=== PATIENT | male | born 1985 | race Caucasian/White ===

== ENCOUNTER 2020-06-27 20:41 | Emergency (ER) | payer SELFPAY ==
[2020-06-27] MEDS ORDERED: Ketorolac 30 MG/ML SDV IVPUSH ONE (20:57)
[2020-06-27] MEDS ORDERED: Ondansetron 4 MG/2 ML SDV IVPUSH ONE (20:57)
[2020-06-27] MEDS ORDERED: Sodium Chloride 0.9% 1,000 ML IV ONE (20:57)
--- NOTE | 2020-06-27 20:57 | EDM.PDOC ---
<Brent Arzola - Last Filed: 06/27/20 22:53> ED HPI GENERAL MEDICAL PROBLEM - General Chief Complaint: Abdominal Pain Stated Complaint: ABDOMINAL PAIN Time Seen by Provider: 06/27/20 20:44 - Related Data Allergies Allergy/AdvReac Type Severity Reaction Status Date / Time No Known Allergies Allergy Verified 06/27/20 20:59 Home Meds: Home Meds Dextroamphetamine/Amphetamine [Adderall] 30 mg PO BID 06/27/20 [History] ED ROS GENERAL - Review of Systems Review Of Systems: Comprehensive ROS is negative, except as noted in HPI. ED EXAM, GI/ABD - Physical Exam Exam: See Below Text/Narrative:: My physical exam is in the HPI in the comments section Course - Vital Signs Text/Narrative:: The patient was turned over to me at the end of my colleagues shift. The patient has 3 weeks abdominal pain worse the last few hours. The patient says it is in the right lower quadrant. It is constant and nothing makes it better or worse. His appetite is good. He has been eating and drinking quite as much as usual. His bowel movements and urine output are normal. He had the pain before this 3-week period. He has not had any injury. Exam reveals tenderness to direct palpation near McBurney's point, no referred tenderness and no guard or rebound. Departure - Departure Time of Disposition: 22:54 Disposition: Home, Self-Care 01 Condition: Good Clinical Impression: Abdominal pain, Constipation, Dehydration - Discharge Information Instructions: Dehydration, Adult, [id number], Constipation, Adult, Abdominal Pain, Adult, [id number] Referrals: David Wisdom Jr, DANIELE [Primary Care Provider] - Forms: ED Department Discharge Additional Instructions: There are 2 kinds of laxatives. One is a stool softener and that with liquids would help if you do not have a lot of fiber in her diet. When you feel it is backed up and you have pain you can take a laxative that will induce the actual movement which is called the cathartic Laxative. The pharmacist can help you pick which one is the best and most affordable for these which are all [id number]. [facility] - Primary [facility] [address] [place] [address] [facility] [address] [place] [address] The following information is given to patients seen in the emergency department who are being discharged to home. This information is to outline your options for follow-up care. We provide all patients seen in our emergency department with a follow-up referral. The need for follow-up, as well as the timing and circumstances, are variable depending upon the specifics of your emergency department visit. If you don't have a primary care physician on staff, we will provide you with a referral. We always advise you to contact your personal physician following an emergency department visit to inform them of the circumstance of the visit and for follow-up with them and/or the need for any referrals to a consulting specialist. The emergency department will also refer you to a specialist when appropriate. This referral assures that you have the opportunity for follow-up care with a specialist. All of these measure are taken in an effort to provide you with o ptimal care, which includes your follow-up. Under all circumstances we always encourage you to contact your private physician who remains a resource for coordinating your care. When calling for follow-up care, please make the office aware that this follow-up is from your recent emergency room visit. If for any reason you are refused follow-up, please contact the [facility] Emergency Department at and asked to speak to the emergency department charge nurse. <Talon Shetty E - Last Filed: 06/29/20 10:12> ED HPI GENERAL MEDICAL PROBLEM - General Source of Information: Reports: Patient History Limitations: Reports: No Limitations - History of Present Illness INITIAL COMMENTS - FREE TEXT/NARRATIVE: HISTORY AND PHYSICAL: History of present illness: Patient is a 35-year-old male who presents to the emergency room with complaints of right upper and right lower quadrant abdominal pain x 2 weeks. States pain initially was dull but over the past 2 days has been increased. Has not assoc iated this with food, physical activity, stress etc... Patient denies any fever, chills, headache, change in vision, syncope or near syncope. Denies any chest pain, back pain, shortness of breath or cough. Denies any nausea, vomiting, diarrhea, constipation or dysuria. Has not noted any blood in urine or stool. Patient has been eating and drinking appropriately. Review of systems: As per history of present illness and below otherwise all systems reviewed and negative. Past medical history: As per history of present illness and as reviewed below otherwise noncontributory. Surgical history: As per history of present illness and as reviewed below otherwise noncontributory. Social history: See social history for further information Family history: As per history of present illness and as reviewed below otherwise noncontributory. Physical exam: General: Well developed and well nourished. Alert and orientated x 3. Nontoxic in appearance and in no acute distress. Vital signs are stable and have been reviewed by me. Nursing notes were reviewed. HEENT: Atraumatic, normocephalic, pupils equal and reactive bilaterally, negative for conjunctival pallor or scleral icterus, mucous membranes moist, TMs normal bilaterally, throat clear, neck supple, nontender, trachea midline. No drooling or trismus noted. No meningeal signs. No hot potato voice noted. Lungs: Clear to auscultation, breath sounds equal bilaterally, chest nontender. Normal work of breathing, no accessory muscles used. Heart: S1S2, regular rate and rhythm without overt murmur Abdomen: Soft, nondistended, mild right upper quadrant tenderness with more intense tenderness to the right lower quadrant. Negative for masses or hepatosplenomegaly. Negative for costovertebral tenderness. Skin: Intact, warm, dry. No lesions or rashes noted. Hematologic: No petechiae or purpra. Mucosa appropriate color and normal nail bed color and refill. Extremities: Atraumatic, moves all extremities per self without difficulty or deficits, negative for cords or calf pain. Neurovascular unremarkable. Neuro: Awake, alert, oriented. Cranial nerves II through XII unremarkable. Cerebellum unremarkable. Motor and sensory unremarkable throughout. Exam nonfocal. Psychiatric: Mood and affect are appropriate. Normal thought process. Answering questions appropriately. Notes: Lab work and imaging are pending. Dr Arzola has agreed to follow this patient and disposition appropriately. Diagnostics: CBC, CMP, Lipase, UA, CT abd/pelvis, COVID Therapeutics: IV fluids, Toradol, Impression: Constipation Dehydration Abdominal Pain Definitive disposition and diagnosis as appropriate pending reevaluation and review of above. Right Upper Abdomen Pain Score (Numeric/FACES): 2 ED ROS GENERAL - Review of Systems Review Of Systems: Comprehensive ROS is negative, except as noted in HPI. Course - Vital Signs Last Recorded V/S: Last Vital Signs Temp 98.1 F 06/27/20 22:40 Pulse 80 06/27/20 22:40 Resp 18 06/27/20 22:40 BP 139/92 H 06/27/20 22:40 Pulse Ox 97 06/27/20 22:40 - Orders/Labs/Meds Labs: Laboratory Tests 06/27/20 06/27/20 06/27/20 Range/Units 21:00 21:10 21:10 WBC 8.09 (4.0-11.0) K/uL RBC 5.78 (4.50-5.90) M/uL Hgb 17.2 H (13.0-17.0) g/dL Hct 51.1 H (38.0-50.0) % MCV 88.4 (80.0-98.0) fL MCH 29.8 (27.0-32.0) pg MCHC 33.7 (31.0-37.0) g/dL RDW Std Deviation 39.9 (28.0-62.0) fl RDW Coeff of Hugo 13 (11.0-15.0) % Plt Count 342 (150-400) K/uL MPV 9.40 (7.40-12.00) fL Neut % (Auto) 52.1 (48.0-80.0) % Lymph % (Auto) 33.3 (16.0-40.0) % [place] % (Auto) 6.8 (0.0-15.0) % Eos % (Auto) 7.2 H (0.0-7.0) % Baso % (Auto) 0.6 (0.0-1.5) % Neut # (Auto) 4.2 (1.4-5.7) K/uL Lymph # (Auto) 2.7 H (0.6-2.4) K/uL [place] # (Auto) 0.6 (0.0-0.8) K/uL Eos # (Auto) 0.6 (0.0-0.7) K/uL Baso # (Auto) 0.1 (0.0-0.1) K/uL Nucleated RBC % 0.0 /100WBC Nucleated RBCs # 0 K/uL Sodium 140 (136-148) mmol/L Potassium 4.0 (3.5-5.1) mmol/L Chloride 103 (98-107) mmol/L Carbon Dioxide 26.3 (21.0-32.0) mmol/L BUN 15 (7.0-18.0) mg/dL Creatinine 1.1 (0.8-1.3) mg/dL Est Cr Clr Drug Dosing 100.92 mL/min Estimated GFR (MDRD) > 60.0 ml/min Glucose 113 H (74-106) mg/dL Calcium 10.4 H (8.5-10.1) mg/dL Total Bilirubin 0.5 (0.2-1.0) mg/dL AST 20 (15-37) IU/L ALT 35 (14-63) IU/L Alkaline Phosphatase 107 (46-116) U/L Total Protein 7.7 (6.4-8.2) g/dL Albumin 3.9 (3.4-5.0) g/dL Globulin 3.8 (2.6-4.0) g/dL Albumin/Globulin Ratio 1.0 (0.9-1.6) Lipase 110 (73-393) U/L Urine Color YELLOW Urine Appearance CLEAR Urine pH 6.0 (5.0-8.0) Ur Specific [place] >= 1.030 (1.001-1.035) Urine Protein NEGATIVE (NEGATIVE) mg/dL Urine Glucose (UA) NEGATIVE (NEGATIVE) mg/dL Urine Ketones NEGATIVE (NEGATIVE) mg/dL Urine Occult Blood NEGATIVE (NEGATIVE) Urine Nitrite POSITIVE H (NEGATIVE) Urine Bilirubin NEGATIVE (NEGATIVE) Urine Urobilinogen 0.2 (<2.0) EU/dL Ur Leukocyte Esterase NEGATIVE (NEGATIVE) Urine RBC 0-1 (0-2/HPF) Urine WBC 0-2 (0-5/HPF) Ur Epithelial Cells OCCASIONAL (NONE-FEW) Urine Bacteria FEW (NEGATIVE) Urine Mucus LIGHT (NONE-MOD) SARS CoV-2 RNA Rapid CHARLI (NEGATIVE) 06/27/20 Range/Units 21:15 WBC (4.0-11.0) K/uL RBC (4.50-5.90) M/uL Hgb (13.0-17.0) g/dL Hct (38.0-50.0) % MCV (80.0-98.0) fL MCH (27.0-32.0) pg MCHC (31.0-37.0) g/dL RDW Std Deviation (28.0-62.0) fl RDW Coeff of Hugo (11.0-15.0) % Plt Count (150-400) K/uL MPV (7.40-12.00) fL Neut % (Auto) (48.0-80.0) % Lymph % (Auto) (16.0-40.0) % [place] % (Auto) (0.0-15.0) % Eos % (Auto) (0.0-7.0) % Baso % (Auto) (0.0-1.5) % Neut # (Auto) (1.4-5.7) K/uL Lymph # (Auto) (0.6-2.4) K/uL [place] # (Auto) (0.0-0.8) K/uL Eos # (Auto) (0.0-0.7) K/uL Baso # (Auto) (0.0-0.1) K/uL Nucleated RBC % /100WBC Nucleated RBCs # K/uL Sodium (136-148) mmol/L Potassium (3.5-5.1) mmol/L Chloride (98-107) mmol/L Carbon Dioxide (21.0-32.0) mmol/L BUN (7.0-18.0) mg/dL Creatinine (0.8-1.3) mg/dL Est Cr Clr Drug Dosing mL/min Estimated GFR (MDRD) ml/min Glucose (74-106) mg/dL Calcium (8.5-10.1) mg/dL Total Bilirubin (0.2-1.0) mg/dL AST (15-37) IU/L ALT (14-63) IU/L Alkaline Phosphatase (46-116) U/L Total Protein (6.4-8.2) g/dL Albumin (3.4-5.0) g/dL Globulin (2.6-4.0) g/dL Albumin/Globulin Ratio (0.9-1.6) Lipase (73-393) U/L Urine Color Urine Appearance Urine pH (5.0-8.0) Ur Specific [place] (1.001-1.035) Urine Protein (NEGATIVE) mg/dL Urine Glucose (UA) (NEGATIVE) mg/dL Urine Ketones (NEGATIVE) mg/dL Urine Occult Blood (NEGATIVE) Urine Nitrite (NEGATIVE) Urine Bilirubin (NEGATIVE) Urine Urobilinogen (<2.0) EU/dL Ur Leukocyte Esterase (NEGATIVE) Urine RBC (0-2/HPF) Urine WBC (0-5/HPF) Ur Epithelial Cells (NONE-FEW) Urine Bacteria (NEGATIVE) Urine Mucus (NONE-MOD) SARS CoV-2 RNA Rapid CHARLI NEGATIVE (NEGATIVE) Meds: Medications Discontinued Medications Generic Name Dose Route Start Last Admin Trade Name Freq PRN Reason Stop Dose Admin Sodium Chloride 1,000 mls @ 999 mls/hr 06/27/20 20:57 06/27/20 21:07 Normal Saline IV 06/27/20 21:57 999 mls/hr STAT ONE Administration Iopamidol 100 ml 06/27/20 22:04 06/27/20 22:05 Isovue-370 (76%) IVPUSH 06/27/20 22:05 100 ml ONETIME STA Administration Ketorolac Tromethamine 30 mg 06/27/20 20:57 06/27/20 21:09 Toradol IVPUSH 06/27/20 20:58 30 mg ONETIME ONE Administration Ondansetron HCl 4 mg 06/27/20 20:57 06/27/20 21:09 Zofran IVPUSH 06/27/20 20:58 4 mg ONETIME ONE Administration
[2020-06-27 21:39] LABS: BLOOD UREA NITROGEN,BUN 15 mg/dL (7.0-18.0); CARBON DIOXIDE,CO2 26.3 mmol/L (21.0-32.0); CHLORIDE,CL 103 mmol/L (98-107); GLUCOSE RANDOM 113 mg/dL (74-106); LIPASE 110 U/L (73-393); SODIUM,NA 140 mmol/L (136-148)
[2020-06-27] MEDS ORDERED: Iopamidol 755 Mg/ML 100 ML Bottle IVPUSH STA (22:04)
--- NOTE | 2020-06-27 22:37 | CT ---
INDICATION: Pain TECHNIQUE: CT abdomen and pelvis acquired with IV contrast. 100 cc Isovue 370 COMPARISON: None FINDINGS: Lower chest: Unremarkable. Liver: Unremarkable. Spleen: Unremarkable. Pancreas: Unremarkable. Gallbladder and bile ducts: Unremarkable. Kidneys: Unremarkable. Adrenal glands: Unremarkable. GI tract: Moderate fecal retention predominant involving the cecum and ascending colon. Appendix is not definitely demonstrated. Vascular structures: Unremarkable. Lymph nodes: Unremarkable. Miscellaneous: Unremarkable. No free air or significant free fluid. Pelvic Organs: Unremarkable. Bones: Unremarkable for age. IMPRESSION: Colonic fecal retention predominantly involving the cecum and ascending colon. Please note that all CT scans at this facility use dose modulation, iterative reconstruction, and/or weight-based dosing when appropriate to reduce radiation dose to as low as reasonably achievable. Dictated by Mika Walker MD @ Jun 27 2020 10:21PM Signed by Dr. Mika Walker @ Jun 27 2020 10:34PM
== END 2020-06-27 23:00 | disposition home or self-care (01) ==
LOC: MW.ED 20:41
DX: K59.00 Constipation, unspecified (principal); E86.0 Dehydration; Z79.899 Other long term (current) drug therapy; Z20.828 Contact with and (suspected) exposure to other viral communicable diseases
CPT/HCPCS: 36415; 74177; 80053; 81001; 83690; 85025; 87086; 87635; 96374; 96375; 99284; J1885; J2405; J7030; Q9967; U0002

== ENCOUNTER 2021-04-26 11:00 | Day surgery (SDC) | payer OTHER, MEDICAID ==
[~2021-04-26 11:00] MED LIST: Lactated Ringers 1,000 ML IV SCH; Lidocaine 2% 5 ML SDV ONE; Ondansetron 4 MG/2 ML SDV ONE; fentaNYL 100 MCG/2 ML SDV ONE; propofoL 100 ML ONE
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
[2021-04-26] MEDS ORDERED: Glycopyrrolate 0.2 MG/ML SDV ONE (14:17)
--- NOTE | 2021-04-26 14:27 | PCM48HPAN ---
Post Anesthesia Note - EVALUATION WITHIN 48HRS OF ANESTHETIC Vital Signs in Normal Range: Yes Patient Participated in Evaluation: Yes Respiratory Function Stable: Yes Airway Patent: Yes Cardiovascular Function Stable: Yes Hydration Status Stable: Yes Pain Control Satisfactory: Yes Nausea and Vomiting Control Satisfactory: Yes Mental Status Recovered: Yes Vital Signs: Last Vital Signs Temp 97.7 F 04/26/21 13:22 Pulse 74 04/26/21 13:22 Resp 16 04/26/21 13:22 BP 129/86 04/26/21 13:22 Pulse Ox 97 04/26/21 13:22
--- NOTE | 2021-04-26 14:27 | PCM.POSTAN ---
POST ANESTHESIA ASSESSMENT - MENTAL STATUS Mental Status: Alert, Oriented - VITAL SIGNS Vital Signs: Last Vital Signs Temp 97.7 F 04/26/21 13:22 Pulse 74 04/26/21 13:22 Resp 16 04/26/21 13:22 BP 129/86 04/26/21 13:22 Pulse Ox 97 04/26/21 13:22 - RESPIRATORY Respiratory Status: Respiratory Rate WNL, Airway Patent, O2 Saturation Stable - CARDIOVASCULAR CV Status: Pulse Rate WNL, Blood Pressure Stable - GASTROINTESTINAL GI Status: No Symptoms - POST OP HYDRATION Hydration Status: Adequate & Stable
--- NOTE | 2021-04-26 14:36 | PCM.OPNOTE ---
- General Post-Op/Procedure Note Date of Surgery/Procedure: 04/26/21 Operative Procedure(s): EGD with biopsies. Colonoscopy Findings: Duodenitis Esophagitis Normal colon Dictation number [id number] Pre Op Diagnosis: constipation. History of stomach ulcers Post-Op Diagnosis: Duodenitis. Esophagitis. Normal colon Primary Surgeon: Remi Ashley Complications: None Condition: Good
--- NOTE | 2021-04-26 18:13 | OR ---
SURGEON: GIORGIO BARNES MD DATE OF PROCEDURE: 04/26/2021 PREOPERATIVE DIAGNOSES: 1. Constipation. 2. History of stomach ulcers. POSTOPERATIVE DIAGNOSES: 1. Some esophagitis, some minimal duodenitis. 2. Normal colon. PRIMARY SURGEON: Giorgio Barnes MD ANESTHESIA: With anesthesiology. EXTENT OF EGD: To the duodenum. EXTENT OF COLONOSCOPY: To the cecum. BOWEL PREP: Good. PROCEDURES PERFORMED: 1. Esophagogastroduodenoscopy with biopsies. 2. Colonoscopy. LIMITATIONS: The patient had an okay bowel prep with some liquid stool with some suction and irrigation, especially in the cecum, but after a lot of suction and irrigation, got a good look of the mucosa. REASON FOR PROCEDURE: The patient is a pleasant 35-year-old gentleman, who over the past 6 months is giving self-enemas to have bowel movements. He has had issues with constipation for at least the past year. The patient says he will get bloating and pressure in the abdomen. He denies any blood in the stool. He denies any heartburn or swallowing problems. He says he does have a history of stomach ulcers in the past. PROCEDURE IN DETAIL: Physical examination was performed. The major risks and benefits associated with the procedure were explained to the patient in detail. The patient verbalized understanding and agreement of the same. The patient was then connected to the appropriate monitoring device and IV started. EKG, pulse, pulse oximetry, blood pressure, and capnography were monitored throughout the entire procedure. Continuous oxygen and sedation were provided by the anesthesiologist. The patient was placed in left lateral decubitus position. Sedation was began. After adequate sedation was achieved, an upper endoscope was advanced under direct visualization without difficulty in the upper GI tract. The anatomy and mucosa of the esophagus, GE junction, stomach, pylorus, and duodenum were all inspected. Duodenum appeared fairly normal except up in the duodenal bulb, had some minimal irritation for some minimal duodenitis. Did do biopsies of this. Scope was brought back to the antrum into the stomach. Both retro and antegrade views of the stomach were done. Actually really no gastritis or irritation seen here. Did do biopsies of the antrum and pylorus area to check for H pylori. Scope was brought back to the GE junction. GE junction was at approximately 40 cm from the incisors. The patient did have irregular GE junction, looked like he had some esophagitis. Did do 4-quadrant biopsies of the GE junction and esophagus. Scope was brought to the stomach. Stomach was desufflated. Scope was brought to the GE junction. There was good hemostasis. Did do biopsies of this. Scope was brought back to the esophagus. Esophagus appeared otherwise normal. The scope was removed, and this part of the procedure was terminated. Gloves and scopes were changed. Now, a rectal examination was done. No rectal masses or polyps felt. Now, a well-lubricated Olympus colonoscope was inserted in the rectum, advanced under direct visualization to the level of the cecum. The cecum was identified by both visual and anatomic landmarks. The patient did have a lot of liquid stool left, which was suctioned and irrigated out on the way in. The patient did have quite a bit of some more thick liquid stool mainly in the cecum. It did take little bit of time to suction and irrigate this out, but did get a good look at the mucosa and the terminal ileum. The scope was then slowly withdrawn in somewhat circular fashion looking at the color, texture, anatomy, and integrity of the mucosa from the cecum to the anal canal. No lesions or polyps were seen. The patient did have somewhat acute angle right in what appeared to be more of splenic flexure, but no stricturing. Scope was retroflexed in the rectum. The scope was completely removed, and the procedure was terminated. ENDOSCOPIC DIAGNOSES: 1. Minimal duodenitis and esophagitis. 2. Normal colonoscopy. RECOMMENDATIONS: I did go over with the patient that he could start some omeprazole. This is a PPI [id number]. He will follow up in the clinic to go over his pathology. Followup colonoscopy in 10 years, sooner if he develops signs and symptoms such as change in bowel habits or blood in the stool. TIA / NENITA /[id number]
== END 2021-04-26 15:15 | disposition home or self-care (01) ==
LOC: MW.SDS 11:00
PROVIDERS: ATTEND Surgery
DX: K20.90 Esophagitis, unspecified without bleeding (principal); K29.80 Duodenitis without bleeding; Z01.812 Encounter for preprocedural laboratory examination; Z20.822 Contact with and (suspected) exposure to COVID-19; Z79.899 Other long term (current) drug therapy; Z87.891 Personal history of nicotine dependence
CPT/HCPCS: 43239; 45378; 87635; 88305; 88312; 88342; J2405; J2704; J3010; J3490; J7120; 00813; U0002

== ENCOUNTER 2021-05-27 12:38 | Emergency (ER) | payer OTHER, MEDICAID ==
[2021-05-27] MEDS ORDERED: Ketorolac 60 MG/2 ML SDV IM ONE (13:30)
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
--- NOTE | 2021-05-27 14:33 | CR ---
Indication: Rolled ankle, foot pain and swelling. Technique: Right foot 3 views. Comparison: None. Findings: No acute fracture or dislocation. Small insertional Achilles tendon enthesophyte. Soft tissues are unremarkable. Impression: No acute findings. Dictated by Hayley Baez MD @ 05/27/2021 2:33:20 PM (Electronically Signed)
== END 2021-05-27 15:23 | disposition home or self-care (01) ==
LOC: MW.ED 12:38
DX: S93.401A Sprain of unspecified ligament of right ankle, initial encounter (principal); Z72.0 Tobacco use; X50.1XXA Overexertion from prolonged static or awkward postures, initial encounter
CPT/HCPCS: 73630; 96372; 99283; J1885